=== PATIENT | male | born 1955 | race Caucasian/White ===

== ENCOUNTER 2020-01-19 11:23 | Outpatient (REF) | payer MEDICAID, SELFPAY ==
[2020-01-19 19:13] LABS: ALT 36 U/L (16-63); AST 25 U/L (15-37); Albumin 3.6 g/dL (3.4-5.0); Alkaline Phosphatase 106 U/L (46-116); Anion Gap 9.7 mmol/L (3-11); BUN 17 mg/dL (7-18); Bilirubin, Total 0.9 mg/dL (0.2-1.0); CO2 29.3 mmol/L (21.0-32.0); CREATININE 0.82 mg/dL (0.70-1.30); Calcium 9.4 mg/dL (8.5-10.1); Calculated LDL 63 mg/dL (<100); Chloride 101 mmol/L (98-107); Cholesterol 136 mg/dL (<200); Glucose 77 mg/dL (74-106); HDL Cholesterol 38 mg/dL (40-60); Potassium 3.9 mmol/L (3.5-5.1); Sodium 140 mmol/L (136-145); Total Protein 7.7 g/dL (6.4-8.2); Triglyceride 175 mg/dL (<150)
== END 2020-01-19 11:43 ==
LOC: NCHCN 11:23
PROVIDERS: PCP Family Medicine; Visit Provider Family Medicine
DX: I25.10 Atherosclerotic heart disease of native coronary artery without angina pectoris (principal); E11.9 Type 2 diabetes mellitus without complications; I10 Essential (primary) hypertension; E78.5 Hyperlipidemia, unspecified
CPT/HCPCS: 80053; 80061

== ENCOUNTER 2020-12-23 18:17 | Outpatient (REF) | payer MEDICAID, SELFPAY ==
[2020-12-23 15:40] LABS: ALT 44 U/L (16-63); AST 31 U/L (15-37); Albumin 3.5 g/dL (3.4-5.0); Alkaline Phosphatase 99 U/L (46-116); Anion Gap 11.4 mmol/L (3-11); BUN 14 mg/dL (7-18); Bilirubin, Total 0.8 mg/dL (0.2-1.0); CO2 27.6 mmol/L (21.0-32.0); Calcium 9.9 mg/dL (8.5-10.1); Chloride 102 mmol/L (98-107); Glucose 141 mg/dL (74-106); Potassium 4.2 mmol/L (3.5-5.1); Sodium 141 mmol/L (136-145); Total Protein 7.6 g/dL (6.4-8.2)
[2020-12-23 22:59] LABS: PSA, Screening 0.3 ng/mL (0.0-4.5)
[2020-12-25 08:38] LABS: Fructosamine 314 mcmol/L (200 - 285)
== END 2020-12-23 18:18 | disposition home or self-care (01) ==
LOC: NCHCN 18:17
PROVIDERS: PCP Family Medicine; Visit Provider Family Medicine
DX: E11.9 Type 2 diabetes mellitus without complications (principal); Z12.5 Encounter for screening for malignant neoplasm of prostate
CPT/HCPCS: 80053; 84153; 82985

== ENCOUNTER 2022-11-22 10:20 | Outpatient (REF) | payer MEDICARE, MEDICAID, SELFPAY ==
[2022-11-22 15:29] LABS: HCT 40.4 % (40.0-50.0); HGB 13.6 g/dL (13.5-17.5); MCH 29.6 pg (27.0-33.0); MCHC 33.7 % (32.0-36.0); MCV 88 fL (80-95); MPV 11.2 fL (8.0-11.0); Platelet Count 353 10^3/uL (130-400); RDW 12.6 % (11.8-14.1); RDW-SD 40.8 fL; WBC 11.19 10^3/uL (4.4-10.8)
[2022-11-22 15:48] LABS: ALT 38 U/L (16-63); AST 32 U/L (15-37); Albumin 3.2 g/dL (3.4-5.0); Alkaline Phosphatase 82 U/L (46-116); Anion Gap 10.2 mmol/L (3-11); BUN 17 mg/dL (7-18); Bilirubin, Total 0.9 mg/dL (0.2-1.0); CO2 25.8 mmol/L (21.0-32.0); CREATININE 1.1 mg/dL (0.70-1.30); Calcium 9.3 mg/dL (8.5-10.1); Chloride 106 mmol/L (98-107); Estimated GFR 74.04 (mL/min/1.73m2); Glucose 90 mg/dL (74-106); Potassium 3.3 mmol/L (3.5-5.1); Sodium 142 mmol/L (136-145); Total Protein 7.5 g/dL (6.4-8.2)
[2022-11-22 15:53] LABS: Hemoglobin A1C 10.8 % (<5.7)
== END 2022-11-22 10:21 | disposition home or self-care (01) ==
LOC: NCHCN 10:20
PROVIDERS: PCP Family Medicine; Visit Provider Family Medicine
DX: E11.9 Type 2 diabetes mellitus without complications (principal); I25.10 Atherosclerotic heart disease of native coronary artery without angina pectoris
CPT/HCPCS: 80053; 85027; 83036

== ENCOUNTER 2023-03-28 09:46 | Outpatient (REF) | payer MEDICARE, MEDICAID, SELFPAY ==
[2023-03-28 15:15] LABS: ALT 40 U/L (16-63); AST 26 U/L (15-37); Albumin 3.1 g/dL (3.4-5.0); Alkaline Phosphatase 89 U/L (46-116); Anion Gap 7.6 mmol/L (3-11); BUN 16 mg/dL (7-18); Bilirubin, Total 0.9 mg/dL (0.2-1.0); CO2 28.4 mmol/L (21.0-32.0); CREATININE 1.1 mg/dL (0.70-1.30); Calcium 9.5 mg/dL (8.5-10.1); Chloride 103 mmol/L (98-107); Estimated GFR 73.58 (mL/min/1.73m2); Glucose 104 mg/dL (74-106); Potassium 3.6 mmol/L (3.5-5.1); Sodium 139 mmol/L (136-145); Total Protein 7.6 g/dL (6.4-8.2)
[2023-04-01 10:47] LABS: Hepatitis A Antibody IgM Negative (Negative); Hepatitis B Core Antibody Negative (Negative); Hepatitis B surface Ag Negative (Negative); Hepatitis C Ab w Rflx HCV PCR Negative (Negative)
== END 2023-03-28 09:47 | disposition home or self-care (01) ==
LOC: NCHCN 09:46
PROVIDERS: PCP Family Medicine; Visit Provider Family Medicine
DX: E11.9 Type 2 diabetes mellitus without complications (principal); I25.10 Atherosclerotic heart disease of native coronary artery without angina pectoris; Z11.59 Encounter for screening for other viral diseases; R93.5 Abnormal findings on diagnostic imaging of other abdominal regions, including retroperitoneum; I10 Essential (primary) hypertension
CPT/HCPCS: 80053; 86704; 86709; 86803; 87340

== ENCOUNTER 2023-09-29 11:46 | Emergency (ER) | payer MEDICARE, MEDICAID, SELFPAY ==
--- NOTE | 2023-09-29 11:45 | DI.CT_ITS ---
Exam(s) CT HEAD WO EXAM: CT HEAD WO CLINICAL HISTORY: Head strike. TECHNIQUE: Imaging Protocol: Axial computed tomography images with coronal and sagittal reformatted images were created and reviewed COMPARISON: No exams were available for comparison FINDINGS: The examination is limited due to patient motion artifact. Ventricles and Extra axial spaces: Normal in size and morphology for the patient's age. Hemorrhage: None. Cerebral parenchyma: There are areas of decreased attenuation in the white matter likely reflecting s mall vessel ischemic disease. No acute territorial infarct. Midline shift: None. Brainstem/Cerebellum: Normal. Calvarium: Normal. Visualized Paranasal sinuses/Mastoids: Mucosal thickening in the maxillary sinuses bilaterally. No a ir-fluid levels are seen. The mastoid air cells are clear. Soft Tissues: There is a soft tissue swelling overlying the left parietal bone. IMPRESSION: No acute intracranial process. RADIATION DOSE DELIVERED: Total DLP DATA REPOSITORY: All CT scans at this facility are submitted to the National Radiology Data Registry (NRDR) Dose Index Registry (DIR) with the [employer] (ACR). RADIATION OPTIMIZATION: All CT scans at this facility use at least one of these dose optimization te chniques: automated exposure control; mA and/or kV adjustment per patient size (includes targeted exa ms where dose is matched to clinical indication); or iterative reconstruction.
--- NOTE | 2023-09-29 11:45 | DI.RAD_ITS ---
Exam(s) XR CHEST 1V IN DI DEPT EXAM: XR CHEST 1V IN DI DEPT CLINICAL HISTORY: History of fall TECHNIQUE: 2D digital imaging was performed of the chest. One image was obtained. An AP view was ob tained. COMPARISON: No exams were available for comparison FINDINGS: MEDIASTINUM: Normal. HEART: Normal. PULMONARY VASCULATURE: Normal. LUNGS: Clear. PLEURAL SPACE: No pleural effusion or pneumothorax. BONE:Within normal limits for the patient's age. There is a lucency seen in the left glenoid. OTHER FINDINGS:Normal. IMPRESSION: 1. No acute pulmonary findings. 2. Lucency seen in the left glenoid. This may represent a fracture or lytic lesion. CT scan recomme nded for further evaluation. DATA REPOSITORY: RADIATION DOSE DELIVERED:
[2023-09-29 11:47] VITALS: BP 184/59; PULSE 58; RESP 18; TEMP 36.5; O2SAT 98
--- NOTE | 2023-09-29 11:49 | W.ED.GENAD ---
Discharge Plan Disposition Patient Disposition: Home Discharge Details Clinical Impression: Abrasion of scalp, Immunization, tetanus-diphtheria, History of falling, Acute pain of left shoulder, Closed fracture of glenoid cavity of left scapula, Incidental pulmonary nodule, > 3mm and < 8mm Primary Care Provider: Silvana Cervantes V ED Provider: Colt Bentley Home Meds and New Rx's Prescriptions: Continued potassium chloride 10 MEQ capsule, extended release 10 meq PO BID insulin glargine [Lantus U-100 Insulin] 100 UNIT/1 ML solution 80 unit Sub-Q TID Rx Instructions: 11/29/15- 50U QAM, 30U QNOON, 50U QPM. HM nitroglycerin 0.4 MG tablet, sublingual 0.4 mg Sublingual ONCE hydrochlorothiazide 25 MG tablet 25 mg PO DAILY insulin aspart U-100 [Novolog PenFill U-100 Insulin] 100 UNIT/1 ML cartridge 25 u Sub-Q TID metoprolol tartrate 25 MG tablet 12.5 mg PO BID lisinopril 20 MG tablet 20 mg PO DAILY aspirin [Aspir-81] 81 MG tablet,delayed release (DR/EC) 81 mg PO DAILY sildenafil [Viagra] 100 MG tablet 100 mg PO PRN citalopram [Celexa] 20 MG tablet 20 mg PO DAILY metformin 1,000 MG tablet extended release 24hr 1,000 mg PO BID Discharge Instructions Additional Instructions: You are seen in the emergency department for your shoulder pain. Your x-ray showed a fracture for which you are receiving a splint. Please do not bear weight on your left upper extremity. Please ice your left shoulder for 20 minutes on 20 minutes off throughout the day today. You are receiving a prescription for several opiate pain medicines which you should take as directed. Please do not drive or drink alcohol after taking these opiate medications. We will follow-up with the orthopedic team. They will call you for a follow-up. If you develop any worsening pain or lose sensation in your left hand please return to the emergency department. For your pain please take medications as follows: 1. Take acetaminophen (Tylenol), 1,000 mg (two 500 mg tabs) every 6 hours 2. Take ibuprofen (Advil), 400 mg every 6 hours. As we discussed you also were found to have an incidental pulmonary nodule for which radiology recommends a repeat CAT scan in 6 to 12 months. Your primary care office has access to our electronic medical records to see this report. Referrals: Dejan Cantor MD [ [facility] STAFF PHYSICIAN] - Discharge Data Discharge Date/Time-TO BE ENTERED AT DEPARTURE: 09/29/23 15:06 HPI General Date/Time Provider Initiated Documentation: 09/29/23 11:49. HPI Narrative: MDM Primary survey intact. Reassuring shock index. On secondary survey patient has pain in his left shoulder. He is able to touch his left hand to his contralateral right shoulder so my suspicion for dislocation is low. Will obtain plain films to assess for any acute osseous abnormalities. Given fall will obtain chest x-ray to assess for trauma. Given age and head strike will obtain CT head based on [place] CT head rules. Preceding chest pain to suggest ACS. No shortness of breath to suggest PE. Given no preceding nausea and vomiting my suspicion is extremely low for acute electrolyte abnormality so will defer assessment of electrolytes at this point time. We will update tetanus status given small superficial scalp abrasion. [address] head on preliminary virtual radiology read read as negative. Virtual radiology read shoulder film as showing a comminuted displaced intra-articular fracture of the glenoid. Will page orthopedics. 1:[address] Cantor from orthopedics. He advised sling at rest. He did recommend a CT scan to assess for extent of injury. Patient is interested in following up locally. We will make patient nonweightbearing left upper extremity. Given no fracture in the body of the scapula and limited mechanism of injury I am not concerned for any intra-abdominal or thoracic trauma so do not feel the patient requires any CT scan of his chest abdomen nor pelvis. We will treat pain with acetaminophen and oxycodone. We will also order 400 mg of ibuprofen. 2:[address] scan showing comminuted displaced intra-articular left glenoid and body of scapular fracture. Patient also was found to have a 7 mm left lower lobe pulmonary nodule. Patient is not a smoker. Radiology advised follow-up CT in 6 to 12 months. Patient follows with [facility] and they have access to her EMR. I advised patient and his daughter of this incidental finding. Will discharge with to go pack of oxycodone and admitting counselor on acetaminophen and low-dose ibuprofen dosing. Patient's abrasion was cleaned in the ED. Discharge vitals with no hypotension or tachycardia. Chronic conditions affecting the care of the patient: Diabetes hypertension coronary artery disease History obtained from an outside historian: Paramedics External record review: [facility] [place] EMR Diagnostic interpretations performed by me: Per my independent interpretation chest x-ray shows: No signs of pneumothorax. Medications: Acetaminophen ibuprofen oxycodone Social determinants of health affecting disposition: N/A Management discussed with: Orthopedics Treatment/interventions considered: N/A Response to therapies provided: N/A HPI This is a [id number] 68-year-old male with history of TIA diabetes coronary artery disease hypertension hyperlipidemia arrived to the emergency department via paramedics in the setting of left shoulder pain following a fall. Patient reports that he was walking down the stairs when he lost his balance. He fell down 3-4 steps and hit his left shoulder and arm. He also hit his head. He did not lose consciousness. He is intermittently been dizzy. No preceding chest pain shortness of breath nausea vomiting dysuria frequency or chills. Was in his usual state of health earlier this morning with no fevers. Exam General: Well-appearing in no acute distress speaking in complete sentences. Head: Normocephalic, posterior scalp abrasion overlying the occiput. Eye: Extraocular eye movements intact. No conjunctival injection. No scleral icterus. Ear, nose, mouth, throat: Grossly normal inspection. Normal voice, handling secretions normally. No hemotympanum bilaterally. No septal hematoma. Neck: Trachea midline. Cardiovascular: Well-perfused distal extremities. Respiratory: Nonlabored respiration. Clear lungs bilaterally. Gastrointestinal: Nondistended abdomen. Soft nontender. Musculoskeletal: Left shoulder with tenderness. No obvious dislocation. Well-healed surgical scar superior aspect of left shoulder. Limited range of motion secondarily to pain. Patient is able to only flex approximately 10 degrees and extend approximately 5 degrees. He is only able to abduct approximately 5 degrees. No tenderness throughout humerus elbow nor left hand. Pelvis stable anterior posterior compression. No tenderness bilateral lower extremities. Skin: Normal for age and race, grossly normal temperature and turgor. No acute rash. Neurologic: Alert and appropriate, no apparent acute deficits. Psychiatric: Mood and manner are appropriate. Grooming and personal hygiene are appropriate. Related Data Home Medications Medication Instructions Recorded Confirmed aspirin 81 mg tablet,delayed 81 mg PO DAILY 11/30/15 09/29/23 release (Aspir-) citalopram 20 mg tablet (Celexa) 20 mg PO DAILY 11/30/15 09/29/23 hydrochlorothiazide 25 mg tablet 25 mg PO DAILY 11/30/15 09/29/23 insulin aspart U-100 100 unit/mL 25 u subcut TID 11/30/15 09/29/23 subcutaneous cartridge (Novolog PenFill U-100 Insulin aspart) insulin glargine 100 unit/mL 80 unit subcut TID 11/30/15 09/29/23 subcutaneous solution (Lantus U-100 Insulin) lisinopril 20 mg tablet 20 mg PO DAILY 11/30/15 09/29/23 metformin 1,000 mg tablet,extended 1,000 mg PO BID 11/30/15 09/29/23 release 24hr metoprolol tartrate 25 mg tablet 12.5 mg PO BID 11/30/15 09/29/23 nitroglycerin 0.4 mg sublingual 0.4 mg sublingual ONCE 11/30/15 09/29/23 tablet potassium chloride 10 mEq 10 meq PO BID 11/30/15 09/29/23 capsule,extended release sildenafil 100 mg tablet (Viagra) 100 mg PO PRN 11/30/15 09/29/23 Allergies Allergy/AdvReac Type Severity Reaction Status Date / Time No Known Allergies Allergy Unverified 09/29/23 11:58 PFSH All Active Problems (Updated 09/29/23 @ 14:48 by Colt Bentley MD) Incidental pulmonary nodule, > 3mm and < 8mm (Acute) Closed fracture of glenoid cavity of left scapula (Acute) Acute pain of left shoulder (Acute) History of falling (Acute) Immunization, tetanus-diphtheria (Acute) Abrasion of scalp (Acute) Social History Smoking/Tobacco Use Status: Never Smoking risk assessment performed?: Yes Substance use type: does not use Do you feel safe at home: Yes Do you feel safe in your relationship?: Yes
--- NOTE | 2023-09-29 12:55 | DI.VRAD_ITS ---
PROCEDURE INFORMATION: Exam: CT Head Without Contrast Exam date and time: 09/29/2023 12:31 PM Age: 68 years old Clinical indication: Injury or trauma; Fall; Blunt trauma (contusions or hematomas); Without loss of consciousness; Patient HX: Head strike TECHNIQUE: Imaging protocol: Computed tomography of the head without contrast. COMPARISON: No relevant prior studies available. FINDINGS: Brain: No acute intracranial hemorrhage.. There is mild diffuse heterogeneity of the white matter attenuation, consistent with chronic white matter ischemic changes. Mild cerebral atrophy Cerebral ventricles: No ventriculomegaly. Paranasal sinuses: Opacities in the maxillary sinuses may represent sinusitis Mastoid air cells: Visualized mastoid air cells are well aerated. Bones/joints: Unremarkable. No acute fracture. Soft tissues: Extra calvarial soft tissue swelling superiorly on the left 13 mm IMPRESSION: No acute intracranial hemorrhage.. Dictated and Authenticated by: Benson Mason MD. Ordering:DANAE Gregory MD
--- NOTE | 2023-09-29 12:56 | DI.VRAD_ITS ---
PROCEDURE INFORMATION: Exam: XR Chest Exam date and time: 09/29/2023 12:38 PM Age: 68 years old Clinical indication: Injury or trauma; Fall; Blunt trauma (contusions or hematomas) TECHNIQUE: Imaging protocol: Radiologic exam of the chest. Views: 1 view. COMPARISON: No relevant prior studies available. FINDINGS: Lungs: Unremarkable. No consolidation. Pleural spaces: Unremarkable. No pleural effusion. No pneumothorax. Heart/Mediastinum: Unremarkable. No cardiomegaly. Bones/joints: Lucency in the glenoid could represent a fracture of unknown age. Recommend CT if clinically indicated IMPRESSION: Lucency in the glenoid could represent a fracture of unknown age. Recommend CT if clinically indicated Dictated and Authenticated by: Benson Mason MD. Ordering:DANAE Gregory MD
--- NOTE | 2023-09-29 12:57 | DI.VRAD_ITS ---
PROCEDURE INFORMATION: Exam: XR Left Shoulder Exam date and time: 09/29/2023 12:40 PM Age: 68 years old Clinical indication: Injury or trauma; Fall; Blunt trauma (contusions or hematomas); Shoulder; Left TECHNIQUE: Imaging protocol: Radiologic exam of the left shoulder. Views: 2 or more views. COMPARISON: CR XR CHEST 1V IN DI DEPT 09/29/2023 12:38 PM FINDINGS: Bones/joints: Comminuted displaced intra-articular fracture of the glenoid. . The glenohumeral joint is aligned Soft tissues: Soft tissue swelling of the shoulder IMPRESSION: Comminuted displaced intra-articular fracture of the glenoid. . Dictated and Authenticated by: Benson Mason MD. Ordering:DANAE Gregory MD
--- NOTE | 2023-09-29 13:15 | DI.CT_ITS ---
Exam(s) XR SHOULDER LT COMPLETE 2+V CT UPPER EXTREMITY LT WO EXAM: XR SHOULDER LT COMPLETE 2+V CLINICAL HISTORY: Left shoulder pain. TECHNIQUE: 2D digital imaging was performed of the left shoulder. Five images were obtained. AP, G rashey, Y-view and axillary views were obtained. Imaging Protocol: Axial computed tomography images with coronal and sagittal reformatted images were created and reviewed. COMPARISON: No priors for comparison. FINDINGS: BONES: There is an acute fracture of the anterior intra-articular inferior left glenoid. There is al so fracture through the body of the scapula which is mildly displaced. JOINTS: No dislocation present. SOFT TISSUE: Normal. CT scan of the left shoulder. Bones: There is an acute comminuted fracture of the scapula involving the anterior inferior glenoid a nd extending medially to involve the body of the scapula. There is marked comminution and displacemen t of the body of the scapula inferior to the spine. The glenohumeral joint is well maintained. Mild d egenerative changes are seen at the acromioclavicular joint. No cellulitic or osteomyelitic changes a re identified. No lytic or sclerotic lesions are identified. Soft Tissues: There is a 6 mm nodule in the left lower lobe. IMPRESSION: 1. Acute intra-articular comminuted fracture of the anterior inferior glenoid with extension into the body of the scapula. 2. 6 mm left lower lobe pulmonary nodule. For low risk patients, recommend CT scan of the chest at 6- 12 months, then consider CT scan of the chest at 18-24 months. For high risk patients (history of smo jaydon or other known risk factors), recommend CT scan of the chest at 6-12 months, then CT scan of the chest at 18-24 months. (Lian et al, 2017). DATA REPOSITORY: All CT scans at this facility are submitted to the National Radiology Data Registry (NRDR) Dose Index Registry (DIR) with the [employer] (ACR). RADIATION DOSE DELIVERED: All CT scans at this facility use at least one of these dose optimization techniques: automated exposure control; mA and/or kV adjustment per patient size (includes targeted e xams where dose is matched to clinical indication); or iterative reconstruction.
[2023-09-29] MEDS: oxyCODONE 10 MG TAB PO (13:29)
[2023-09-29] MEDS: Ibuprofen 400 MG TAB PO (13:29)
[2023-09-29] MEDS: Acetaminophen 500 MG TAB 1000 MG PO (13:31)
[2023-09-29 14:40] VITALS: BP 194/65; PULSE 53; TEMP 36.2; O2SAT 97
--- NOTE | 2023-09-29 14:40 | DI.VRAD_ITS ---
PROCEDURE INFORMATION: Exam: CT Left Upper Extremity Without Contrast, Shoulder Exam date and time: 09/29/2023 1:39 PM Age: 68 years old Clinical indication: Injury or trauma; Fall; Fracture, traumatic injury; Closed fracture; Scapula; Left TECHNIQUE: Imaging protocol: Computed tomography of the left upper extremity without contrast. Exam focused on the shoulder. COMPARISON: CR XR SHOULDER LT COMPLETE 2+V 09/29/2023 12:40 PM FINDINGS: Bones/joints: Comminuted displaced intra-articular fracture of the scapula involving the glenoid. There is a transverse oblique fracture that extends from the central portion of the glenoid articular surface through the medial cortex of the scapular blade. The inferior body of the scapula is comminuted and displaced. 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 No rib fracture identified. No humerus fracture identified. The acromion and coracoid are intact. Soft tissues: Normal. Lungs: 7 mm pulmonary nodule in the superior segment of the left lower lobe. See axial series 2, image 247. IMPRESSION: 1. Severely comminuted and displaced intra-articular fracture of the left glenoid and body of the scapula. 2. 7 mm indeterminate pulmonary nodule in the left lower lobe.For patients at low risk (minimal or absent history of smoking and of other known risk factors), recommend CT Chest at 6-12 months, then consider CT Chest at 18-24 months. For patients at high risk (history of smoking or of other known risk factors), recommend CT Chest at 6-12 months, then CT Chest at 18-24 months. (Reference: Tamie) References: Karenhoileana H, et al. Guidelines for Management of Incidental Pulmonary Nodules Detected on CT Images: From the [employer]ischner Society 2017. Radiology. 2017;284(1):228-243. Dictated and Authenticated by: Greta Nance MD. Ordering:DANAE Gregory MD
--- OUTSIDE RECORDS SUMMARY | 2023-09-29 14:43 | XMS_ITS | Patient Health Record ---
Author Name Unknown [facility] Address [address] [place] [address] Care Team Providers Care Residential Sales Associate Name Role Phone JOSSELIN GRANADOS, SANTIAGO Primary Care Provider Haven Baker [phone] ALLERGIES Allergen (clinical drug ingredient) Drug/Non Drug Allergy documented on EMR Reaction Allergy Type Onset Date Status Creosote Creosote (uncoded) Unknown Allergy A ctive Seasonal (uncoded) Unknown Allergy A ctive REASON FOR REFERRAL No Information MEDICATIONS Medication SIG (Take, Route, Frequency, Duration) Notes Start Date End Date Status Atorvastatin Calcium 40 mg 1 tab(s) orally once a day Active GLUCOMETER STOP*please review for potential _update for e-prescription and drug interaction check* Active Lisinopril 20 mg 1 tab(s) orally once a day Active Metoprolol Tartrate 25 mg 1 tab(s) orally 2 times a day Active NovoLOG FlexPen 100 units/mL 0 subcutaneously 45 units TID Active Betamethasone Valerate valerate 0.1% 1 ana applied topically 2 times a day Active Keflex 500 mg 1 cap(s) orally 4 times daily Not-Taking metFORMIN HCl 1000 mg 1 tab(s) orally 2 times a day Active PEN NEEDLE 8MM 31G STOP*please review for potential _update for e-prescription and drug interaction check* Active hydroCHLOROthiazide 25 mg 1 tab(s) orally once a day Active Lasix 20 mg 1 tab(s) orally once a day Active -ONE TOUCH ULTRA MINI TEST STRIPS as directed BID STOP*please review for potential _update for e-prescription and drug interaction check* Active KLOR-CON M10 10 mEq 1 tab(s) orally once daily STOP*please review for potential _update for e-prescription and drug interaction check* Active -NEEDLES [place] for unit dose pen sc as directed,03/19 STOP*please review for potential _update for e-prescription and drug interaction check* Active -ONE TOUCH ULTRA MINI GLUCOSE METER STOP*please review for potential _update for e-prescription and drug interaction check* Active CeleXA 20 mg 2 tab(s) orally once a day Pt will be switching to 1 tab of 40 mg, when current rx runs out Active Doxycycline Hyclate hyclate 100 mg 1 tab(s) orally 2 times a day Not-Taking LANTUS SOLOSTAR PEN 100 units/mL 0 subcutaneously inject 75 units in AM, 75 units at noon, 75 units in PM STOP*please review for potential _update for e-prescription and drug interaction check* Active Aspirin 81 mg 1 tab(s) orally once a day Active GABAPENTIN 100 mg 2 cap(s) orally at bedtime prn STOP*please review for potential _update for e-prescription and drug interaction check* Not-Taking Plavix 75 mg 1 tab(s) orally once a day Active LAMISIL 250 mg 1 tab(s) orally once a day for 90 days STOP*please review for potential _update for e-prescription and drug interaction check* 8 Active Nitroglycerin 0.4 mg 1 tab(s) sublingually every 5 minutes Active Viagra 100 mg 1 tab(s) orally once a day Not-Taking SOCIAL HISTORY Tobacco Use: Social History Observation Description Date Details (start date - stop date) Never Smoker NA - NA Sex Assigned At : Social History Observation Description Sex Assigned At Unknown SMOKING Question Answer Notes Are you a: nonsmoker PROBLEMS Problem Type ICD Code Onset Dates Problem Status W/U Status Risk SNOMED Code Notes Problem Type 2 diabetes mellitus with hyperglycemia (E11.65) Active confirmed 009808515412820 Problem Type 2 diabetes mellitus with unspecified complications (E11.8) Active confirmed 49667184 Problem Other hammer toe(s) (acquired), right foot (M20.41) Active confirmed 280318154 Problem Other hammer toe(s) (acquired), left foot (M20.42) Active confirmed 18353284 Problem intermediate current use of insulin (Z79.4) Active confirmed 883074683 Problem Diabetic polyneuropathy associated with type 2 diabetes mellitus (E11.42) Active confirmed 92100739 Problem 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) Active confirmed [id number] PLAN OF TREATMENT No Information Insurance Providers Payer Name Payer Address Payer Phone Subscriber Number Group Number Insured Name Patient Relationship to Insured Coverage Start Date Coverage End Date [place], [place] [id number] LISSA COLLNIS Self - patient is the insured SELF [place]Y [place] [address] [place] [address] LISSA COLLINS Self - patient is the insured MEDICATIONS ADMINISTERED Medication Instructions Date of Administration Dosage Notes Depo-medrol 40 08/12/2018 20 Left Middl e Finger Depo-medrol 40 08/20/2018 20 mg Right Inde x Finger MEDICAL (GENERAL) HISTORY Medical History History ICD Code DM II Hyperlipidemia HTN ED Surgical History Surgery Date(Month/Year) Heart surgery Leg surgery Shoulder surgery Hospitalization History Reason Date(Month/Year) see above
== END 2023-09-29 15:06 | disposition home or self-care (01) ==
PROVIDERS: Emergency Provider Emergency Medicine; PCP Family Medicine
DX: S00.01XA Abrasion of scalp, initial encounter (principal); R42 Dizziness and giddiness; S42.142A Displaced fracture of glenoid cavity of scapula, left shoulder, initial encounter for closed fracture; W10.9XXA Fall (on) (from) unspecified stairs and steps, initial encounter; R91.1 Solitary pulmonary nodule; Z23 Encounter for immunization; Z86.73 Personal history of transient ischemic attack (TIA), and cerebral infarction without residual deficits; E11.9 Type 2 diabetes mellitus without complications; I25.10 Atherosclerotic heart disease of native coronary artery without angina pectoris; E78.5 Hyperlipidemia, unspecified; I10 Essential (primary) hypertension; Z79.82 Long term (current) use of aspirin; Z79.899 Other long term (current) drug therapy
CPT/HCPCS: 90471; 99285; 70450; 71045; 73030; 73200; 99284

== ENCOUNTER → 2023-10-16 03:49 | Outpatient (CLI) | payer MEDICARE, MEDICAID, SELFPAY ==
--- NOTE | 2023-10-16 | DI.RAD_ITS ---
Exam(s) XR SCAPULA LT EXAM: XR SCAPULA LT INDICATION: FX LEFT SCAPULA S42.102A. COMPARISON: CR,XR XR SHOULDER LT COMPLETE 2+V from 09/29/2023 TECHNIQUE: 2D digital imaging was performed. Two views. FINDINGS: No change in alignment of scapular fracture. No new findings. DATA REPOSITORY: RADIATION DOSE DELIVERED:
--- OUTSIDE RECORDS SUMMARY | 2023-10-16 03:50 | XMS_ITS | Patient Health Record ---
Author Name Unknown [facility] Address [address] [place] [address] Care Team Providers Care Cow Rider Name Role Phone JOSSELIN GRANADOS, [place] Primary Care Provider Haven Baker [phone] ALLERGIES Allergen (clinical drug ingredient) Drug/Non Drug [...] e-prescription and drug interaction check* Active -NEEDLES [place] for unit dose pen sc as directed,03/19 [...] diabetes mellitus with hyperglycemia (E11.65) Active confirmed [id number] Problem Type 2 diabetes mellitus with unspecified complications (E11.8) Active confirmed 24641221 Problem Other hammer toe(s) (acquired), right foot (M20.41) Active confirmed 785411347 Problem Other hammer toe(s) (acquired), left foot (M20.42) Active confirmed 18140086 Problem [facility] current use of insulin (Z79.4) Active confirmed [id number] Problem Diabetic polyneuropathy associated with type 2 diabetes mellitus (E11.42) Active confirmed 32096737 Problem 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
== END ==
PROVIDERS: PCP Family Medicine; Visit Provider Student in an Organized Health Care Education/Training Program
DX: S42.142D Displaced fracture of glenoid cavity of scapula, left shoulder, subsequent encounter for fracture with routine healing (principal); X58.XXXD Exposure to other specified factors, subsequent encounter
CPT/HCPCS: 73010

== ENCOUNTER → 2023-12-25 00:41 | Outpatient (CLI) | payer MEDICARE, SELFPAY ==
--- NOTE | 2023-12-25 | DI.CT_ITS ---
Exam(s) CT ABDOMEN PELVIS W EXAM: CT ABDOMEN PELVIS W CLINICAL HISTORY: F/U ABNL CT,R93.5,PANCREATIC NODES. TECHNIQUE: Imaging Protocol: Axial computed tomography images with coronal and sagittal reformatted images were created and reviewed CONTRAST MATERIAL: Intravenous: Omnipaque-350 100cc Oral: Yes. Oral contrast also administered for bowel opacification. COMPARISON: No prior relevant exams were available for comparison FINDINGS: VISUALIZED LUNG BASES: No nodules nor pleural effusions evident. ABDOMEN: There is no ascites. LIVER: There are no focal hepatic lesions evident. Liver is hypodense implying steatosis. There are no dilated intrahepatic ducts GALLBLADDER/BILIARY: No obvious gallbladder pathology. CBD is not dilated. PANCREAS: No evidence of pancreatic mass nor dilatation of the pancreatic duct. However, there are e nlarged lymph nodes above the pancreatic head-neck, largest of these measuring approximately 3.7 by 2 .0 cm. Enlarged portacaval lymph node also noted measuring 3 by 1.2 cm. However, there is no mass i n the pancreas evident. SPLEEN: Spleen is not enlarged. No obvious intrasplenic lesions. Splenic and portal veins are paten t. ADRENALS: There are no significant adrenal masses. KIDNEYS:No cysts evident. No solid renal masses. No calculi nor hydronephrosis.. ABDOMINAL AORTA: Calcified but not enlarged. LYMPH NODES:There is no retroperitoneal nor paraaortic adenopathy. ABDOMINAL WALL: No evidence of significant anterior abdominal wall nor inguinal hernia. GI: There is no evidence of bowel obstruction, free air, nor abscess. PELVIS: GI: No evidence of appendicitis.There are sigmoid diverticuli but no evidence of obvious acute divert iculitis. No free fluid. LYMPH NODES: There is no intrapelvic nor inguinal adenopathy. REPRODUCTIVE: Prostate size normal. Seminal vesicles unremarkable. Calcification in bilateral vas d eferens noted. URINARY BLADDER: No calculi nor obvious masses evident OSSEOUS: No fractures and no significant osseous lesions. 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 IMPRESSION: 1. There are enlarged lymph nodes around the pancreatic head-neck region as described above without evidence of obvious intrinsic pancreatic pathology. Pancreatic duct is not dilated. No pancreatic c alcifications. 2. Hepatic steatosis. No discrete focal hepatic lesions. There is no significant dilatation of the biliary tree, both intra and extrahepatic.. 3. No para-aortic lymphadenopathy and no ascites evident. Sigmoid diverticulosis. No acute diverticulitis. RADIATION DOSE DELIVERED: 3,283.74mGy.cm Total DLP DATA REPOSITORY: All CT scans at this facility are submitted to the National Radiology Data Registry (NRDR) Dose Index Registry (DIR) with the [employer] ([employer]). RADIATION OPTIMIZATION: All CT scans at this facility use at least one of these dose optimization te chniques: automated exposure control; mA and/or kV adjustment per patient size (includes targeted exa ms where dose is matched to clinical indication); or iterative reconstruction.
[2023-12-25 08:12] LABS: Estimated GFR 82.49 (mL/min/1.73m2)
[2023-12-25] MEDS: Barium Sulfate 2% W/V-Creamy Vanilla Smoothie 450 ML BTL PO (09:25)
[2023-12-25] MEDS: Barium Sulfate 2% W/V-Berry Smoothie 450 ML BTL PO (09:25)
[2023-12-25] MEDS: Omnipaque 350 MG/ML 100 ML BTL IJ (09:28)
== END ==
PROVIDERS: PCP Family Medicine; Visit Provider Family Medicine
DX: R93.5 Abnormal findings on diagnostic imaging of other abdominal regions, including retroperitoneum (principal)
CPT/HCPCS: 74177; 82565; J3490

== ENCOUNTER 2024-06-04 14:46 | Outpatient (REF) | payer MEDICARE, SELFPAY ==
[2024-06-04 15:49] LABS: ALT 26 U/L (16-63); AST 21 U/L (15-37); Albumin 3.2 g/dL (3.4-5.0); Alkaline Phosphatase 113 U/L (46-116); Anion Gap 10.9 mmol/L (3-11); BUN 19 mg/dL (7-18); Bilirubin, Total 0.73 mg/dL (0.2-1.0); CO2 26.1 mmol/L (21.0-32.0); CREATININE 1.2 mg/dL (0.70-1.30); Calcium 9.3 mg/dL (8.5-10.1); Calculated LDL 54 mg/dL (<100); Chloride 103 mmol/L (98-107); Cholesterol 131 mg/dL (<200); Estimated GFR 65.87 (mL/min/1.73m2); Glucose 195 mg/dL (74-106); HDL Cholesterol 42 mg/dL (40-60); Potassium 3.2 mmol/L (3.5-5.1); Sodium 140 mmol/L (136-145); Total Protein 7.5 g/dL (6.4-8.2); Triglyceride 176 mg/dL (<150)
[2024-06-04 16:03] LABS: Hemoglobin A1C 8.5 % (<5.7)
[2024-06-05 07:53] LABS: PSA, Screening 0.3 ng/mL (<=4.5)
== END 2024-06-04 14:47 | disposition home or self-care (01) ==
LOC: NCHCN 14:46
PROVIDERS: PCP Family Medicine; Visit Provider Family Medicine
DX: E11.9 Type 2 diabetes mellitus without complications (principal); E78.5 Hyperlipidemia, unspecified; Z12.5 Encounter for screening for malignant neoplasm of prostate
CPT/HCPCS: 80053; 80061; 84153; 83036

== ENCOUNTER 2025-06-22 16:37 | Outpatient (REF) | payer MEDICARE, SELFPAY ==
[2025-06-22 16:14] LABS: Hemoglobin A1C 7.6 % (<5.7)
[2025-06-22 16:21] LABS: ALT 36 U/L (16-63); AST 25 U/L (15-37); Albumin 3.3 g/dL (3.4-5.0); Alkaline Phosphatase 105 U/L (46-116); Anion Gap 11.6 mmol/L (3-11); BUN 16 mg/dL (7-18); Bilirubin, Total 0.9 mg/dL (0.2-1.0); CO2 25.4 mmol/L (21.0-32.0); Calcium 9.8 mg/dL (8.5-10.1); Chloride 103 mmol/L (98-107); Estimated GFR 72.67 (mL/min/1.73m2); Glucose 155 mg/dL (74-106); Potassium 3.9 mmol/L (3.5-5.1); Sodium 140 mmol/L (136-145); Total Protein 7.2 g/dL (6.4-8.2)
== END 2025-06-22 16:38 | disposition home or self-care (01) ==
LOC: NCHCN 16:37
PROVIDERS: PCP Family Medicine; Visit Provider Family Medicine
DX: Z79.4 Long term (current) use of insulin (principal)
CPT/HCPCS: 80053; 83036

== ENCOUNTER 2025-10-21 13:50 | Outpatient (REF) | payer MEDICARE, SELFPAY ==
[2025-10-21 17:56] LABS: Microalb ug/mg Crea 349.1 ug/mg Cr
== END 2025-10-21 13:51 | disposition home or self-care (01) ==
LOC: NCHCN 13:50
PROVIDERS: PCP Family Medicine; Visit Provider Family Medicine
DX: E11.9 Type 2 diabetes mellitus without complications (principal)
CPT/HCPCS: 82043; 82570